=== PATIENT | male | born 1995 | race African-American/Black ===

== ENCOUNTER 2020-08-13 15:52 | Emergency (ER) | payer OTHER ==
[~2020-08-13] VITALS: Ht 175.3 cm; Wt 122.5 kg
[2020-08-13] MEDS ORDERED: LEVEMIR100 UNIT/1 SUBQ (16:17)
[2020-08-13] MEDS ORDERED: NOVOLOG100 UNIT/M SUBQ (16:18)
[2020-08-13 16:45] LABS: URINE BLOOD NEGATIVE (Negative); URINE CLARITY CLEAR; URINE COLOR YELLOW; URINE GLUCOSE-RANDOM* 2+ (Negative); URINE KETONES TRACE (Negative); URINE LEUKOCYTES-REFLEX NEGATIVE (Negative); URINE NITRITE-REFLEX NEGATIVE (Negative); URINE PROTEIN (DIPSTICK) 1+ (Negative); URINE SPECIFIC GRAVITY >= 1.030 (1.005-1.035); URINE UROBILINOGEN 0.2 E.U./dl (0.2-1.0)
[2020-08-13 16:47] LABS: ICTOTEST (BILI CONFIRMATORY) Negative (Negative); URINE BILIRUBIN NEGATIVE (Negative)
[2020-08-13 16:54] LABS: BACTERIA-REFLEX 1-9 Few /HPF (None Seen); CASTS None Seen /LPF (None Seen); CRYSTALS None Seen /LPF (None Seen); MUCUS 0-3 Light strn/LPF (None Seen); SQUAMOUS 0-3 Few /LPF (0-3); URINE RBC None Seen /HPF (0-2); URINE WBC-REFLEX 0-5 Rare /HPF (0-5)
[2020-08-13 19:05] LABS: ABSOLUTE NEUTROPHILS 3.9 thou/uL (1.4-8.2); BASOPHILS 0.4 % (0.0-2.0); EOSINOPHILS 0.2 % (0.0-3.0); HEMOGLOBIN 15.5 gm/dL (14.0-18.0); LYMPHOCYTES 17.9 % (24.0-44.0); MCH 29.9 pg (26.0-34.0); MCHC 33.7 g/dL (28.0-37.0); MCV 88.9 fL (80.0-100.0); MONOCYTES 15.3 % (1.0-8.0); PLATELET COUNT 228 thou/uL (150-400); POLYS 66.2 % (36.0-66.0); RBC 5.18 mil/uL (4.50-6.00); RDW 13.4 % (10.5-14.5); WBC 5.9 thou/uL (4.0-11.0)
[2020-08-13 19:13] LABS: CALCIUM 8.3 mg/dL (8.5-10.1); CREATININE 0.9 mg/dL (0.7-1.3); POTASSIUM 3.1 mmol/L (3.5-5.1)
[2020-08-13 19:19] LABS: ALBUMIN 3.4 g/dL (3.4-5.0); DIRECT BILIRUBIN 0.1 mg/dL (<0.1-0.2); TOTAL BILIRUBIN 0.7 mg/dL (0.2-1.0); TOTAL PROTEIN 7.6 g/dL (6.4-8.2)
[2020-08-13 20:53] LABS: CREATININE 1.1 mg/dL (0.7-1.3); POTASSIUM 3.5 mmol/L (3.5-5.1)
[2020-08-13] MEDS ORDERED: ONDANSETRON HCL4 M2 PO (21:05)
[2020-08-13 21:12] VITALS: BP 130/76
== END 2020-08-13 21:13 | disposition home or self-care (01) ==
LOC: ER 15:52
PROVIDERS: Nurse Practitioner
DX: E11.65 Type 2 diabetes mellitus with hyperglycemia (principal); Z79.4 Long term (current) use of insulin